=== PATIENT | male | born 1985 | race Caucasian/White ===

== ENCOUNTER → 2023-11-11 14:11 | Outpatient (REF) | payer SELFPAY | LOC: RAD 14:11 | PROVIDERS: ATTENDING PHYSICIAN Physician Assistant Medical; FAMILY PHYSICIAN Student in an Organized Health Care Education/Training Program | DX: R07.89 Other chest pain (principal); E78.5 Hyperlipidemia, unspecified | CPT/HCPCS: 75571 ==

== ENCOUNTER → 2024-02-05 09:45 | Outpatient (REF) | payer BC, SELFPAY | LOC: DHSLP 09:45 | PROVIDERS: ATTENDING PHYSICIAN Internal Medicine; FAMILY PHYSICIAN Student in an Organized Health Care Education/Training Program | DX: G47.33 Obstructive sleep apnea (adult) (pediatric) (principal) | CPT/HCPCS: 95810 ==

== ENCOUNTER 2024-04-07 17:13 | Emergency (ER) | payer BC, SELFPAY ==
--- NOTE | 2024-04-07 17:16 | EDRN ---
When screened for SI/HI, pt unable to answer 'yes' or 'no' and was asking for a more private arena. Brought to triage room to have privacy.
[2024-04-07 17:25] VITALS: BP 172/121
[2024-04-07 17:46] LABS: % Basophils 0.5 % (0-2); % Eosinophils 0.3 % (0-6); % Immature Granulocytes 0.2 % (0-0.5); % Monocytes 6.1 % (1.7-9.3); % Neutrophils 61.9 % (42.2-75.2); Absolute Lymphocytes 1.8 10^3/uL (1.2-3.4); Absolute Monocytes 0.4 10^3/uL (0.1-0.6); Absolute Neutrophils 3.7 10^3/uL (1.4-6.5); Hematocrit 41.7 % (39.0-52.0); Hemoglobin 14.7 g/dL (13.0-18.0); Mean Corp Hgb Conc. 35.3 g/dL (33.0-37.0); Mean Corpuscular Hgb 28.6 pg (27.0-31.0); Mean Corpuscular Volume 81.1 fL (80.0-94.0); Mean Platelet Volume 9.1 fL (7.4-10.4); Nucleated Red Blood Cells % 0 % (-); Platelet Count 230 10^3/uL (130-400); Red Blood Cell Count 5.14 10^6/uL (4.70-6.10); Red Cell Dist. Width 11.9 % (11.5-14.5); White Blood Cell Count 5.9 10^3/uL (4.8-10.8)
[2024-04-07 18:02] LABS: Amphetamines Negative (Negative); Barbiturates Negative (Negative); Benzodiazepines Positive (Negative); Buprenorphine Negative (Negative); Cocaine Negative (Negative); Marijuana Negative (Negative); Methadone Negative (Negative); Methamphetamines Negative (Negative); Opiates Negative (Negative); Phencyclidine Negative (Negative); Tricyclic Antidepressants Negative (Negative)
--- NOTE | 2024-04-07 18:05 | ED.GENMED ---
History of Present Illness
General
Chief Complaint: Psychiatric Problem
Source: patient and family
Time Seen by Provider: 04/07/24 17:52
History of Present Illness
History of Present Illness:
39-year-old male presents to the emergency room with his parents for evaluation of insomnia which is causing him significant physical and mental stress. Patient has had insomnia for years. He is prescribed lorazepam and trazodone. He also had a
sleep study recently which showed that he does have sleep apnea. He began using a CPAP machine but has had no improvement. Patient feels discomfort all over his body. He feels short of breath and chest pain at times. No fever or chills. When
asked about suicidal thoughts the patient states that he feels hopeless and daydreams about sleeping and never waking up but denies any plan on actually hurting himself.
Past History
Past History
ED Past Medical History: Psychiatric
Social History
Tobacco: Non-smoker
Personal: Single
Living: with family
Phy Exam
Physical Exam
Physical Exam:
General: Awake, Alert, Oriented X3. Tearful but stable
Vitals: unremarkable
Head: Atraumatic
Eyes: Pupils equal, EOMI
Throat: Airway intact, no exudates
Neck: Trachea midline
Lungs: Clear and equal b/l
Heart: Regular rate, no murmurs
Abd: Soft, Nontender, No pulsatile mass
Neuro: Nonfocal
Skin: Warm, dry, no rash
Extremities: pulses equal b/l, no edema
Course
Orders/Labs/Results
Orders:
Orders
04/07/24 17:22
1:1 Observation - Suicide/ Violent Behavior As Directed
04/07/24 17:35
Acetaminophen Urgent
Alcohol Urgent
Complete Blood Count/With Diff Urgent
Comprehensive Metabolic Panel Urgent
Drug Screen, Urine [Urine Drug Abuse Screen] Urgent
Date Specimen was Collected: 04/07/24
Time Specimen was Collected: 17:23
Fentanyl, Urine Urgent
Salicylate Urgent
TSH Reflex To Free T4 Urgent
Comment: ADD ON
04/07/24 18:01
Add On- LAB Urgent
Tests Added?: TSH w reflex T4
04/07/24 18:04
Electrocardiogram (*1) Urgent
Reason for Study: Chest Pain
EKG- Treatment ONCE
04/07/24 20:07
Crisis Consult Urgent
Reason for Consult: insomnia, anxiety, depression, suicidal ideation
04/07/24 21:50
Asenapine Sublingual [Saphris] 5 mg SL NOW STA
04/07/24 23:53
Lorazepam [Ativan] 2 mg PO NOW STA
Abnormal Lab Results
04/07/24
17:35
Chloride 96 L mmol/L
(98-107)
BUN 6 L mg/dl
(9-20)
Total Bilirubin 1.5 H mg/dl
(0.2-1.3)
Albumin 5.2 H g/dl
(3.5-5.0)
Salicylates < 1.0 L mg/dl
(2.0-20.0)
Acetaminophen < 10 L ug/ml
(10-30)
U Benzodiazepines Scrn Positive H
(Negative)
04/07/24 17:35
04/07/24 17:35
Vital Signs
Initial and Last Documented VS:
Initial Vital Signs
Temp Pulse Resp BP Pulse Ox
98.0 F 70 16 172/121 97
04/07/24 17:25 04/07/24 17:25 04/07/24 17:25 04/07/24 17:25 04/07/24 17:25
Last Documented Vital Signs
Temp Pulse Resp BP Pulse Ox
98.0 F 75 18 137/94 96
04/07/24 17:25 04/07/24 21:59 04/07/24 21:59 04/07/24 21:59 04/07/24 21:59
MDM/Problems Addressed
MDM/Problems Addressed:
Medically cleared for psychiatric treatment
*Critical Care Note
Total Time (30-74mins, 75-104mins- exclusive of procedures): Not Applicable
ED Attending Note
-
Portions of this chart may have been created with voice recognition software.� Occasional wrong word or��sound alike� substitutions may have occurred due to the inherent limitations of voice recognition software.
Discharge Plan
Departure
Patient Disposition: Psych Facility
Date of Disposition: 04/07/24
Time of Disposition: 21:48
Discharge Problem:
Depression, Insomnia
Prescriptions:
No Action
levothyroxine 100 MCG tablet
112 mcg PO DAILY
trazodone 100 MG tablet
100 mg PO HS
lorazepam 1 MG tablet
1 mg PO HS
Referrals:
UNKNOWN - PT NOT,INTERVIEWE [Family Provider] -
Interventions
Interventions:
*Risk Screen - Suicide Last Done: 04/07/24 17:16
*General Assessment Last Done: 04/07/24 17:16
ED- Fall Risk Assessment Last Done: 04/07/24 17:16
*ED COVID-19 Vaccine History Last Done: 04/07/24 17:16
*Nursing Disposition Last Done: 04/08/24 01:06
ED-Psychological Assessment Last Done: 04/07/24 18:10
Discharge Date and Time
Discharge Date/Time: 04/08/24 01:07
Print Language: WOLOF
[2024-04-07 18:08] LABS: ALT (SGPT) 20 U/L (0-50); AST (SGOT) 23 U/L (17-59); Acetaminophen < 10 ug/ml (10-30); Albumin 5.2 g/dl (3.5-5.0); Alkaline Phosphatase 53 U/L (38-126); Blood Urea Nitrogen 6 mg/dl (9-20); Calcium 10.2 mg/dl (8.4-10.2); Carbon Dioxide 27 mmol/L (22-30); Chloride 96 mmol/L (98-107); Glucose 94 mg/dl (70-99); Potassium 4.2 mmol/L (3.5-5.1); Salicylate < 1.0 mg/dl (2.0-20.0); Sodium 136 mmol/L (135-145); Total Bilirubin 1.5 mg/dl (0.2-1.3); Total Protein 7.6 g/dl (6.3-8.2); eGFR > 60.00
[2024-04-07 18:12] LABS: Alcohol None Detected
[2024-04-07 18:19] LABS: Fentanyl, Urine Negative (Negative)
[2024-04-07 18:49] LABS: TSH Reflex To Free T4 0.87 uIU/ml (0.47-4.68)
[2024-04-07 21:59] VITALS: BP 137/94
[2024-04-07] MEDS: SAPHRIS 5 MG SL (22:27)
[2024-04-08] MEDS: ATIVAN 2 MG PO (00:02)
== END 2024-04-08 01:07 ==
LOC: EMR 17:13
PROVIDERS: Emergency Medicine; EMERGENCY PHYSICIAN Emergency Medicine
DX: F32.A Depression, unspecified (principal); G47.00 Insomnia, unspecified; G47.30 Sleep apnea, unspecified
CPT/HCPCS: 99283; 80053; 80143; 80179; 80306; 80307; 82077; 84443; 85025; 93005